=== PATIENT | female | born 1940 | race Caucasian/White ===

== ENCOUNTER 2024-01-01 06:07 | Inpatient (IN) ==
[2024-01-01] MEDS ORDERED: IOPAMIDOL 100 ML BOTTLE IV ONE (06:08)
[2024-01-01 06:45] LABS: Basophils # (Auto) 0.02 K/mcL (0.00-0.30); Basophils % (Auto) 0.2 % (0.0-2.0); Eosinophils # (Auto) 0.13 K/mcL (0.00-0.70); Eosinophils % (Auto) 1.1 % (0.0-7.0); Hemoglobin 10.8 g/dL (11.2-15.7); Lymphocytes # (Auto) 1.75 K/mcL (1.50-4.80); Lymphocytes % (Auto) 14.4 % (15.5-49.0); Mean Cell Volume 100.3 fL (80.0-100.0); Mean Corpuscular HGB Conc 31.8 g/dL (31.0-36.0); Mean Platelet Volume 9.8 fL (8.8-12.5); Monocytes # (Auto) 0.51 K/mcL (0.10-0.90); Monocytes % (Auto) 4.2 % (1.0-12.0); Neutrophils % (Auto) 79.2 % (38.0-78.0); Platelet Count 169 K/mcL (140-440); RBC 3.39 M/mcL (3.59-5.38); WBC 12.2 K/mcL (4.5-11.0)
[2024-01-01] MEDS: ONDANSETRON 4 MG/2 ML VIAL IV ONE (06:49)
[2024-01-01] MEDS: morphine 4 MG/ML VIAL IV PRN (06:50)
[2024-01-01 07:21] LABS: Alcohol, Blood < 10.1 mg/dL; Alcohol,Blood < 0.010 gm/dL (<0.010)
[2024-01-01 07:32] LABS: Prothrombin Time 13.1 sec (11.9-14.5)
[2024-01-01 07:34] LABS: ALT/SGPT 23 U/L (<40); AST/SGOT 21 U/L (<32); Albumin 3.9 gm/dL (3.2-5.2); Albumin/Globulin Ratio 1.3 (1.0-2.3); Alkaline Phosphatase 72 U/L (39-117); Bilirubin,Total 0.4 mg/dL (0.1-1.0); Blood Urea Nitrogen 77 mg/dL (8-23); Carbon Dioxide 13 mmol/L (22-30); Chloride 109 mmol/L (96-108); Glomerular Filtration Rate 37; Glucose 93 mg/dL (70-105); Potassium 6.5 mmol/L (3.3-5.1); Sodium 134 mmol/L (133-145)
[2024-01-01] MEDS: ASPIRIN 81 MG TAB.CHEW CHEWED ONE (07:42)
[2024-01-01] MEDS: INSULIN REGULAR, HUMAN 1 UNIT/0.01 ML UNIT IV ONE (09:15)
[2024-01-01] MEDS: DEXTROSE 50% 50 ML SYRINGE IV ONE ×3 (09:16→12:40)
[2024-01-01] MEDS: FUROSEMIDE 40 MG/4 ML VIAL IV ONE (09:16)
[2024-01-01] MEDS: DEXTROSE 50% 50 ML VIAL IV ONE (09:16)
[2024-01-01] MEDS: 0.9 % SODIUM CHLORIDE 500 ML IV ONE ×2 (11:26→12:48)
[2024-01-01 11:36] LABS: Appearance,Urine CLEAR (Clear); Bilirubin,Urine Negative (Negative); Color,Urine STRAW; Glucose,Urine (UA) Negative (Negative); Ketones,Urine Negative (Negative); Leukocyte Esterase,Urine 25 /uL (Negative); Nitrate,Urine Negative (Negative); Protein,Urine 30 mg/dL (Negative); Specific Gravity,Urine 1.017 (1.000-1.035); Urine Blood 0.03 mg/dL (Negative); Urine RBC 3 /hpf (0-3); Urine Squamous Epithelial Cell 2 /hpf (0-4); Urine WBC 30 /hpf (0-4); Urobilinogen,Urine Negative
[2024-01-01 11:43] LABS: Amphetamine Screen,Urine None detected; Barbiturate Screen,Urine None detected; Benzodiazepines Screen,Urine None detected; Cannabinoid Screen,Urine None detected; Cocaine Screen,Urine None detected; Fentanyl, Urine Screen None Detected; Opiate Screen,Urine Suspect Positive; Oxycodone, Urine Screen None detected; Phencyclidine Screen,Urine None detected
[2024-01-01 12:48] LABS: Blood Urea Nitrogen 76 mg/dL (8-23); Calcium 9.6 mg/dL (8.6-10.4); Carbon Dioxide 13 mmol/L (22-30); Chloride 109 mmol/L (96-108); Glomerular Filtration Rate 41; Glucose 69 mg/dL (70-105); Potassium 6.2 mmol/L (3.3-5.1); Sodium 132 mmol/L (133-145)
[2024-01-01] MEDS ORDERED: SODIUM BICARBONATE VIAL 150 MEQ in WATER FOR INJECTION,STERILE 850 ML IV SCH (13:00)
[2024-01-01] MEDS ORDERED: ONDANSETRON 4 MG/2 ML VIAL IV PRN (13:10)
[2024-01-01] MEDS: SODIUM BICARBONATE VIAL 150 MEQ in DEXTROSE 5% IN WATER 850 ML IV SCH (13:36)
[2024-01-01] MEDS: CALCIUM GLUCONATE 4.65 MEQ in DEXTROSE 5% IN WATER 50 ML IV ONE (14:06)
[2024-01-01] MEDS: 0.9 % SODIUM CHLORIDE 10 ML SYRINGE IV SCH (14:06)
[2024-01-01 15:59] LABS: Blood Urea Nitrogen 74 mg/dL (8-23); Calcium 9.7 mg/dL (8.6-10.4); Carbon Dioxide 14 mmol/L (22-30); Chloride 106 mmol/L (96-108); Glomerular Filtration Rate 41; Glucose 121 mg/dL (70-105); Sodium 131 mmol/L (133-145)
[2024-01-01] MEDS: ACETAMINOPHEN 325 MG TABLET PO PRN (20:06)
[2024-01-01] MEDS: DOCUSATE SODIUM 100 MG CAPSULE PO SCH (20:06)
[2024-01-01] MEDS: SENNOSIDES 1 TABLET PO PRN (20:06)
[2024-01-01 20:45] LABS: Blood Urea Nitrogen 71 mg/dL (8-23); Calcium 9.8 mg/dL (8.6-10.4); Carbon Dioxide 16 mmol/L (22-30); Chloride 106 mmol/L (96-108); Glomerular Filtration Rate 41; Glucose 109 mg/dL (70-105); Sodium 133 mmol/L (133-145)
[2024-01-01] MEDS ORDERED: HEPARIN 5,000 UNIT/ML VIAL SQ SCH (21:00)
[2024-01-01] MEDS: SODIUM ZIRCONIUM CYCLOSILICATE 10 GM PACKET PO ONE (21:06)
[2024-01-02 01:13] LABS: Blood Urea Nitrogen 67 mg/dL (8-23); Calcium 9.3 mg/dL (8.6-10.4); Carbon Dioxide 18 mmol/L (22-30); Chloride 108 mmol/L (96-108); Glomerular Filtration Rate 37; Glucose 118 mg/dL (70-105); Potassium 5.1 mmol/L (3.3-5.1); Sodium 135 mmol/L (133-145)
[2024-01-02] MEDS: SODIUM BICARBONATE 50 MEQ/50 ML VIAL ONE (02:35)
[2024-01-02 06:53] LABS: Basophils # (Auto) 0.02 K/mcL (0.00-0.30); Basophils % (Auto) 0.3 % (0.0-2.0); Eosinophils # (Auto) 0.19 K/mcL (0.00-0.70); Eosinophils % (Auto) 3.1 % (0.0-7.0); Hematocrit 31.2 % (34.1-44.9); Hemoglobin 9.7 g/dL (11.2-15.7); Lymphocytes # (Auto) 1.42 K/mcL (1.50-4.80); Lymphocytes % (Auto) 23.1 % (15.5-49.0); Mean Cell Volume 103.7 fL (80.0-100.0); Mean Corpuscular HGB Conc 31.1 g/dL (31.0-36.0); Mean Platelet Volume 10.2 fL (8.8-12.5); Monocytes # (Auto) 0.35 K/mcL (0.10-0.90); Monocytes % (Auto) 5.7 % (1.0-12.0); Neutrophils % (Auto) 67.5 % (38.0-78.0); Platelet Count 138 K/mcL (140-440); RBC 3.01 M/mcL (3.59-5.38); Red Cell Distribution Width 14.1 % (11.5-14.5); WBC 6.2 K/mcL (4.5-11.0)
[2024-01-02 06:57] LABS: ALT/SGPT 15 U/L (<40); AST/SGOT 14 U/L (<32); Albumin 3.1 gm/dL (3.2-5.2); Albumin/Globulin Ratio 1.1 (1.0-2.3); Alkaline Phosphatase 63 U/L (39-117); Bilirubin,Direct < 0.2 mg/dL (0-0.3); Bilirubin,Total 0.4 mg/dL (0.1-1.0); Blood Urea Nitrogen 66 mg/dL (8-23); Calcium 9.3 mg/dL (8.6-10.4); Carbon Dioxide 18 mmol/L (22-30); Chloride 104 mmol/L (96-108); Globulin 2.7 gm/dL (2.2-3.7); Glomerular Filtration Rate 46; Glucose 113 mg/dL (70-105); Lactate Dehydrogenase 172 U/L (135-225); Potassium 4.7 mmol/L (3.3-5.1); Sodium 134 mmol/L (133-145); Triglycerides 93 mg/dL (<150); Uric Acid 7.7 mg/dL (2.5-8.0)
[2024-01-02] MEDS: SODIUM BICARBONATE VIAL 150 MEQ in DEXTROSE 5% IN WATER 850 ML IV SCH (08:32)
[2024-01-02] MEDS ORDERED: PHENAZOPYRIDINE 200 MG TABLET PO PRN (16:48)
[2024-01-02] MEDS: MEMANTINE 10 MG TABLET PO SCH (20:03)
[2024-01-02] MEDS: MELATONIN 3 MG TABLET PO SCH (20:03)
[2024-01-02] MEDS: 0.9 % SODIUM CHLORIDE 500 ML IV ONE (20:05)
[2024-01-02] MEDS: LATANOPROST OPHTH DROPS 2.5ML BOTTLE OU SCH (21:27)
[2024-01-03 06:56] LABS: Basophils # (Auto) 0.02 K/mcL (0.00-0.30); Basophils % (Auto) 0.3 % (0.0-2.0); Eosinophils # (Auto) 0.19 K/mcL (0.00-0.70); Eosinophils % (Auto) 2.8 % (0.0-7.0); Hematocrit 29.9 % (34.1-44.9); Hemoglobin 9.6 g/dL (11.2-15.7); Lymphocytes # (Auto) 1.57 K/mcL (1.50-4.80); Lymphocytes % (Auto) 23.4 % (15.5-49.0); Mean Cell Volume 99.7 fL (80.0-100.0); Mean Corpuscular HGB Conc 32.1 g/dL (31.0-36.0); Mean Platelet Volume 10.2 fL (8.8-12.5); Monocytes # (Auto) 0.41 K/mcL (0.10-0.90); Monocytes % (Auto) 6.1 % (1.0-12.0); Neutrophils % (Auto) 67.1 % (38.0-78.0); Platelet Count 134 K/mcL (140-440); WBC 6.7 K/mcL (4.5-11.0)
[2024-01-03 07:33] LABS: ALT/SGPT 13 U/L (<40); AST/SGOT 15 U/L (<32); Albumin 3.3 gm/dL (3.2-5.2); Albumin/Globulin Ratio 1.4 (1.0-2.3); Alkaline Phosphatase 63 U/L (39-117); Bilirubin,Direct < 0.2 mg/dL (0-0.3); Bilirubin,Total 0.3 mg/dL (0.1-1.0); Blood Urea Nitrogen 64 mg/dL (8-23); Calcium 9.1 mg/dL (8.6-10.4); Carbon Dioxide 21 mmol/L (22-30); Chloride 105 mmol/L (96-108); Globulin 2.3 gm/dL (2.2-3.7); Glomerular Filtration Rate 58; Glucose 93 mg/dL (70-105); Lactate Dehydrogenase 180 U/L (135-225); Phosphorous 2.3 mg/dL (2.5-4.5); Potassium 4.9 mmol/L (3.3-5.1); Sodium 137 mmol/L (133-145); Triglycerides 98 mg/dL (<150); Uric Acid 7.3 mg/dL (2.5-8.0)
[2024-01-03] MEDS: ESCITALOPRAM 10 MG TABLET PO SCH (09:00)
[2024-01-03] MEDS: LEVOTHYROXINE 50 MCG TABLET PO SCH (09:00)
[2024-01-03] MEDS ORDERED: DOCUSATE SODIUM 100 MG CAPSULE PO SCH (09:00)
[2024-01-03] MEDS: NEUTRA PHOS 1 PACKET PO ONE (12:05)
[2024-01-03] MEDS: PHOSPHORUS 250 MG TABLET PO SCH (20:39)
[2024-01-04 06:53] LABS: Basophils # (Auto) 0.02 K/mcL (0.00-0.30); Basophils % (Auto) 0.3 % (0.0-2.0); Eosinophils # (Auto) 0.23 K/mcL (0.00-0.70); Eosinophils % (Auto) 3.5 % (0.0-7.0); Hematocrit 28.2 % (34.1-44.9); Lymphocytes # (Auto) 1.58 K/mcL (1.50-4.80); Lymphocytes % (Auto) 23.7 % (15.5-49.0); Mean Cell Volume 101.8 fL (80.0-100.0); Mean Corpuscular HGB Conc 31.9 g/dL (31.0-36.0); Mean Platelet Volume 10.2 fL (8.8-12.5); Monocytes # (Auto) 0.41 K/mcL (0.10-0.90); Monocytes % (Auto) 6.2 % (1.0-12.0); Platelet Count 125 K/mcL (140-440); RBC 2.77 M/mcL (3.59-5.38); Red Cell Distribution Width 13.9 % (11.5-14.5); WBC 6.7 K/mcL (4.5-11.0)
[2024-01-04 06:55] LABS: ALT/SGPT 12 U/L (<40); AST/SGOT 17 U/L (<32); Albumin 3.2 gm/dL (3.2-5.2); Albumin/Globulin Ratio 1.5 (1.0-2.3); Alkaline Phosphatase 60 U/L (39-117); Bilirubin,Direct < 0.2 mg/dL (0-0.3); Bilirubin,Total 0.3 mg/dL (0.1-1.0); Blood Urea Nitrogen 60 mg/dL (8-23); Calcium 8.9 mg/dL (8.6-10.4); Carbon Dioxide 24 mmol/L (22-30); Chloride 106 mmol/L (96-108); Globulin 2.2 gm/dL (2.2-3.7); Glomerular Filtration Rate 58; Glucose 92 mg/dL (70-105); Lactate Dehydrogenase 197 U/L (135-225); Phosphorous 2.7 mg/dL (2.5-4.5); Potassium 5.3 mmol/L (3.3-5.1); Sodium 137 mmol/L (133-145); Triglycerides 103 mg/dL (<150); Uric Acid 7.2 mg/dL (2.5-8.0)
[2024-01-04] MEDS: FUROSEMIDE 20 MG TABLET PO SCH (14:15)
[2024-01-05 06:47] LABS: Basophils # (Auto) 0.03 K/mcL (0.00-0.30); Basophils % (Auto) 0.4 % (0.0-2.0); Eosinophils # (Auto) 0.25 K/mcL (0.00-0.70); Eosinophils % (Auto) 3.5 % (0.0-7.0); Hematocrit 29.4 % (34.1-44.9); Hemoglobin 9.4 g/dL (11.2-15.7); Lymphocytes # (Auto) 1.76 K/mcL (1.50-4.80); Mean Cell Volume 100.7 fL (80.0-100.0); Mean Platelet Volume 10.2 fL (8.8-12.5); Monocytes # (Auto) 0.45 K/mcL (0.10-0.90); Monocytes % (Auto) 6.4 % (1.0-12.0); Neutrophils % (Auto) 64.6 % (38.0-78.0); Platelet Count 135 K/mcL (140-440); RBC 2.92 M/mcL (3.59-5.38); Red Cell Distribution Width 13.8 % (11.5-14.5); WBC 7.1 K/mcL (4.5-11.0)
[2024-01-05 07:29] LABS: ALT/SGPT 11 U/L (<40); AST/SGOT 20 U/L (<32); Albumin 3.3 gm/dL (3.2-5.2); Albumin/Globulin Ratio 1.4 (1.0-2.3); Alkaline Phosphatase 61 U/L (39-117); Bilirubin,Direct < 0.2 mg/dL (0-0.3); Bilirubin,Total 0.3 mg/dL (0.1-1.0); Blood Urea Nitrogen 52 mg/dL (8-23); Calcium 8.7 mg/dL (8.6-10.4); Carbon Dioxide 21 mmol/L (22-30); Chloride 107 mmol/L (96-108); Globulin 2.4 gm/dL (2.2-3.7); Glomerular Filtration Rate 58; Glucose 92 mg/dL (70-105); Lactate Dehydrogenase 202 U/L (135-225); Phosphorous 2.6 mg/dL (2.5-4.5); Potassium 4.7 mmol/L (3.3-5.1); Sodium 138 mmol/L (133-145); Triglycerides 119 mg/dL (<150); Uric Acid 7.5 mg/dL (2.5-8.0)
[2024-01-05] MEDS: LIDOCAINE 4% TOP PATCH TOPICAL SCH (09:14)
[2024-01-06 10:09] LABS: Opiate Screen Positive ng/mL (Cutoff=300)
[2024-01-09] MEDS ORDERED: ALENDRONATE SODIUM 70 MG TABLET PO SCH (09:00)
== END 2024-01-05 14:12 | DRG 83 ==
LOC: ED 06:07 → ICU 13:00 → MEDSUR 01-04 16:10
PROVIDERS: ADMIT Student in an Organized Health Care Education/Training Program; ATTEND Internal Medicine